=== PATIENT | male | born 1980 | race Two or more races ===

== ENCOUNTER 2020-10-10 19:36 | Emergency (ER) | payer SELFPAY ==
[~2020-10-10] VITALS: Ht 165.1 cm; Wt 78.0 kg
[2020-10-10] MEDS ORDERED: ASPI-1497 PO (19:51)
[2020-10-10] MEDS ORDERED: ATOR-2 PO (19:51)
[2020-10-10] MEDS ORDERED: LEVO50TA8 PO (19:52)
[2020-10-10] MEDS ORDERED: AMLO2.5T45 PO (19:52)
[2020-10-10] MEDS ORDERED: NITROGLYCERIN 0.4MG TABLET SL SL PRN (21:45)
[2020-10-10 22:25] LABS: BASOPHILS % 0.5 % (0.0-2.0); EOSINOPHILS % 1.1 % (0.0-5.0); HEMATOCRIT. 43.5 % (42.0-52.0); HEMOGLOBIN. 15.3 g/dL (14.0-18.0); LYMPHOCYTES % 36.5 % (20.0-50.0); MEAN CORPUSCULAR HEMOGLOBIN 31.1 pg (28.0-32.0); MEAN CORPUSCULAR VOLUME 88.5 fL (80.0-94.0); MEAN PLATELET VOLUME 8.4 fl (7.4-10.4); MONOCYTES % 8.1 % (2.0-8.0); NEUTROPHILS % 53.8 % (40.0-76.0); PLATELET 202 x1000/uL (130-400); RED BLOOD CELL COUNT 4.92 mill/uL (4.7-6.1); RED CELL DISTRIBUTION WIDTH 13.4 % (11.6-14.6)
[2020-10-10 22:31] LABS: CHLORIDE 106 mEq/L (98-107)
[2020-10-10 22:35] LABS: ETHANOL BLOOD < 10 mg/dL
[2020-10-10 23:13] LABS: *AMPHETAMINES SCREEN URINE NEGATIVE (NEGATIVE)
[2020-10-10 23:14] LABS: *BARBITURATES SCREEN URINE NEGATIVE (NEGATIVE); *BENZODIAZEPINES SCREEN URINE NEGATIVE (NEGATIVE); *COCAINE SCREEN URINE NEGATIVE (NEGATIVE); CANNABINOID URINE SCREEN NEGATIVE (NEGATIVE); METHADONE URINE SCREEN NEGATIVE (NEGATIVE); OPIATES URINE SCREEN NEGATIVE (NEGATIVE); PHENCYCLIDINE URINE SCREEN NEGATIVE (NEGATIVE)
[2020-10-11 02:01] VITALS: BP 129/79
== END 2020-10-11 02:02 | disposition home or self-care (01) ==
LOC: ER 19:36
DX: E03.9 Hypothyroidism, unspecified (principal); R07.89 Other chest pain; R00.2 Palpitations; I10 Essential (primary) hypertension; E78.00 Pure hypercholesterolemia, unspecified; Z79.82 Long term (current) use of aspirin
CPT/HCPCS: 36415; 71045; 80053; 80305; 80320; 83880; 84443; 84484; 85025; 93005; 99285; G0480

== ENCOUNTER 2021-03-22 11:44 | Emergency (ER) | payer MEDICAID ==
[~2021-03-22] VITALS: Ht 165.1 cm; Wt 79.0 kg
[~2021-03-22 11:44] MED LIST: AMLO2.5T45 PO; ASPI-1497 PO; ATOR-2 PO; LEVO50TA8 PO
[2021-03-22 12:29] LABS: BASOPHILS % 0.8 % (0.0-2.0); EOSINOPHILS % 2.2 % (0.0-5.0); HEMATOCRIT. 40.7 % (42.0-52.0); HEMOGLOBIN. 14.6 g/dL (14.0-18.0); LYMPHOCYTES % 34.6 % (20.0-50.0); MEAN CORPUSCULAR HEMOGLOBIN 32.1 pg (28.0-32.0); MEAN CORPUSCULAR VOLUME 89.8 fL (80.0-94.0); MEAN PLATELET VOLUME 8.2 fl (7.4-10.4); NEUTROPHILS % 55.4 % (40.0-76.0); PLATELET 193 x1000/uL (130-400); RED BLOOD CELL COUNT 4.54 mill/uL (4.7-6.1)
[2021-03-22] MEDS ORDERED: IBUPROFEN 400MG TABLET PO ONE (12:30)
[2021-03-22 12:38] LABS: CHLORIDE 109 mEq/L (98-107)
[2021-03-22 12:42] LABS: CLARITY URINE CLOUDY (CLEAR); COLOR URINE YELLOW (YELLOW); KETONES URINE NEGATIVE (NEGATIVE); LEUKOCYTE ESTERASE URINE NEGATIVE (NEGATIVE); NITRITE URINE NEGATIVE (NEGATIVE); OCCULT BLOOD URINE NEGATIVE (NEGATIVE); PH URINE 7.5 (4.5-8.0); PROTEIN URINE NEGATIVE (NEGATIVE); SPECIFIC GRAVITY URINE 1.025 (1.005-1.030)
[2021-03-22 12:46] LABS: CREATINE KINASE 431 IU/L (39-308)
[2021-03-22] MEDS ORDERED: IBUP-2028 MT (14:42)
[2021-03-22 15:03] VITALS: BP 134/86
== END 2021-03-22 15:07 | disposition home or self-care (01) ==
LOC: ER 11:44
DX: R07.89 Other chest pain (principal); E03.9 Hypothyroidism, unspecified; E78.00 Pure hypercholesterolemia, unspecified; E05.90 Thyrotoxicosis, unspecified without thyrotoxic crisis or storm; I10 Essential (primary) hypertension; Z79.82 Long term (current) use of aspirin
CPT/HCPCS: 36415; 71250; 80053; 81003; 82550; 84443; 84484; 85025; 93005; 99285

== ENCOUNTER 2021-04-18 23:21 | Emergency (ER) | payer MEDICAID ==
[~2021-04-18] VITALS: Ht 165.1 cm; Wt 75.0 kg
[~2021-04-18 23:21] MED LIST changes: +IBUP-2028 MT
[2021-04-19 00:14] LABS: CHLORIDE 105 mEq/L (98-107)
[2021-04-19 00:17] LABS: EOSINOPHILS % 1.9 % (0.0-5.0); HEMOGLOBIN. 15.3 g/dL (14.0-18.0); LYMPHOCYTES % 38.9 % (20.0-50.0); MEAN CORPUSCULAR VOLUME 89.7 fL (80.0-94.0); MEAN PLATELET VOLUME 8.1 fl (7.4-10.4); MONOCYTES % 7.2 % (2.0-8.0); PLATELET 228 x1000/uL (130-400); RED BLOOD CELL COUNT 4.79 mill/uL (4.7-6.1); RED CELL DISTRIBUTION WIDTH 12.9 % (11.6-14.6)
[2021-04-19 04:55] VITALS: BP 134/84
== END 2021-04-19 05:00 | disposition home or self-care (01) ==
LOC: ER 23:21
DX: R07.9 Chest pain, unspecified (principal); Z79.82 Long term (current) use of aspirin
CPT/HCPCS: 36415; 71045; 80053; 80320; 83605; 83880; 84484; 85025; 99285; G0480

== ENCOUNTER 2021-10-31 10:43 | Emergency (ER) | payer MEDICAID ==
[~2021-10-31] VITALS: Ht 175.3 cm; Wt 82.0 kg
[2021-10-31 10:46] VITALS: BP 147/87
[2021-10-31] MEDS ORDERED: IBUPROFEN 600MG TABLET PO STA (10:50)
[2021-10-31 12:01] LABS: CLARITY URINE CLEAR (CLEAR); COLOR URINE DARK YELLOW (YELLOW); KETONES URINE TRACE (NEGATIVE); LEUKOCYTE ESTERASE URINE TRACE (NEGATIVE); NITRITE URINE NEGATIVE (NEGATIVE); OCCULT BLOOD URINE NEGATIVE (NEGATIVE); PH URINE 5.5 (4.5-8.0); PROTEIN URINE TRACE (NEGATIVE); SPECIFIC GRAVITY URINE 1.028 (1.005-1.030)
[2021-10-31] MEDS ORDERED: NAPR-681 PO (13:08)
== END 2021-10-31 14:19 | disposition home or self-care (01) ==
LOC: ER 10:43
DX: R10.2 Pelvic and perineal pain (principal); Z79.82 Long term (current) use of aspirin; Z98.890 Other specified postprocedural states
CPT/HCPCS: 76870; 81003; 93976; 99284

== ENCOUNTER 2022-02-19 17:47 | Emergency (ER) | payer MEDICAID ==
[~2022-02-19] VITALS: Ht 165.1 cm; Wt 70.0 kg
[~2022-02-19 17:47] MED LIST changes: +NAPR-681 PO
[2022-02-19 17:55] VITALS: BP 138/76
== END 2022-02-19 21:32 | disposition left against medical advice (07) ==
LOC: ER 17:47
DX: R10.9 Unspecified abdominal pain (principal); Z53.21 Procedure and treatment not carried out due to patient leaving prior to being seen by health care provider

== ENCOUNTER 2022-03-25 17:40 | Emergency (ER) | payer MEDICAID ==
[~2022-03-25] VITALS: Ht 167.6 cm; Wt 72.0 kg
[2022-03-25 17:42] VITALS: BP 154/97
[2022-03-25 21:23] LABS: HEMATOCRIT 44.8 % (42.0-52.0); HEMOGLOBIN 15.7 g/dL (14.0-18.0); MEAN CORPUSCULAR HEMOGLOBIN 32.5 pg (28.0-32.0); MEAN CORPUSCULAR VOLUME 92.5 fL (80.0-94.0); PLATELET 215 x1000/uL (130-400); RED BLOOD CELL COUNT 4.84 mill/uL (4.7-6.1); RED CELL DISTRIBUTION WIDTH 13.7 % (11.6-14.6)
== END 2022-03-26 01:06 | disposition home or self-care (01) ==
LOC: ER 17:40
DX: K92.1 Melena (principal); R10.30 Lower abdominal pain, unspecified; Z79.899 Other long term (current) drug therapy
CPT/HCPCS: 36415; 85027; 99283